=== PATIENT | female | born 1990 | race Caucasian/White ===

== ENCOUNTER 2017-05-10 12:47 | Emergency (ER) | END 2017-05-10 15:28 | disposition home or self-care (01) | DX: O23.41 Unspecified infection of urinary tract in pregnancy, first trimester (principal); O20.0 Threatened abortion; Z3A.01 Less than 8 weeks gestation of pregnancy | CPT/HCPCS: 76801; 76817; 81001; 84702; 85025; 86900; 86901; Z7502 ==

== ENCOUNTER 2017-09-03 13:15 | Emergency (ER) | payer OTHER ==
[~2017-09-03] VITALS: Ht 160 cm; Wt 72.7 kg
[~2017-09-03 13:15] MED LIST: CALC-75 PO; CEPH-443 PO; IRON1TAB75 PO; PREN-39 PO
[2017-09-03 13:16] VITALS: Ht 160 cm; Wt 72.7 kg
[2017-09-03] MEDS ORDERED: METOCLOPRAMIDE 10 MG INJ IV STA (14:03)
[2017-09-03] MEDS ORDERED: SOD CHLORIDE 0.9% 1,000 ML IV STA (14:03)
[2017-09-03 15:22] LABS: BASOPHILS % 0.2 % (0.0-2.0); EOSINOPHILS % 0.2 % (0.0-7.0); HEMATOCRIT 33.4 % (37.0-47.0); HEMOGLOBIN 11.8 g/dl (12.0-16.0); LYMPHOCYTES % 25.2 % (15.0-51.0); MEAN CORPUSCULAR HEMOGLOBIN 28.7 pg (29.0-33.0); MEAN CORPUSCULAR HGB CONC 35.3 g/dl (32.0-37.0); MEAN CORPUSCULAR VOLUME 81.3 fl (82.0-101.0); MEAN PLATELET VOLUME 10.8 fl (7.4-10.4); MONOCYTE # 0.4 10^3/ul (0.3-0.9); MONOCYTES % 10.8 % (0.0-11.0); NEUTROPHIL # 2.6 10^3/ul (1.6-7.5); NEUTROPHILS % 63.4 % (39.0-77.0); PLATELET COUNT 221 10^3/UL (140-415); RED BLOOD COUNT 4.11 10^6/ul (4.20-5.40); RED CELL DISTRIBUTION WIDTH 12.6 % (11.5-14.5); WHITE BLOOD COUNT 4.1 10^3/ul (4.8-10.8)
[2017-09-03] MEDS ORDERED: METO10TA92 PO (15:37)
--- NOTE | 2017-09-03 15:40 | ERD ---
ER Documentation Chief Complaint Chief Complaint vomiting x 4 days, 12 weeks (LEON POWERS MD) HPI 27-year-old female presents with vomiting for last 4 days. She also has chills. She is 12 weeks by dates. She had a ultrasound this week which is showed no abnormalities. She denies any urinary complaints or vaginal bleeding. She denies any abdominal pain except mildly in the upper abdomen on the left. Vomiting is nonbilious and nonbloody. (LEON POWERS MD) ROS All systems reviewed and are negative except as per history of present illness. (LEON POWERS MD) Medications Home Meds Active Scripts Metoclopramide* (Reglan*) 10 Mg Tablet, 10 MG PO Q6 Y for NAUSEA AND/OR VOMITING , #20 TAB Prov:LEON POWERS MD 09/03/17 Cephalexin* (Keflex*) 500 Mg Capsule, 500 MG PO BID for 7 Days, CAP Prov:JENNIFER CHARLES MD 05/10/17 Reported Medications Calcium Carb/Vit D3/Minerals (CALCIUM 600 + D TABLET) 1 Each Tablet, 1 EACH PO DAILY 09/17/13 Iron &Iron Asp Gly/Fa/Mv,Min38 (IRON TABLET) 1 Each Tablet, 1 EACH PO DAILY 09/17/13 Vits W-Ca,Fe,Fa(<1MG) ( Vitamins) 1 Tab Tablet, 1 TAB PO DAILY 09/17/13 Allergies Allergies: Coded Allergies: No Known Drug Allergies (Verified Allergy, 09/17/13) PMhx/Soc Medical and Surgical Hx: pt denies Medical Hx, pt denies Surgical Hx Hx Alcohol Use: No Hx Substance Use: No Hx Tobacco Use: No Smoking Status: Never smoker (LEON POWERS MD) Physical Exam Vitals Vital Signs Date Time Temp Pulse Resp B/P Pulse Ox O2 Delivery O2 Flow Rate FiO2 09/03/17 13:16 97.9 105 18 122/68 98 (NELSON HOLLIDAY PA-C) Physical Exam Const: [ alert, [id number]. Head: Atraumatic Eyes: Normal Conjunctiva ENT: Normal External Ears, Nose and Mouth. Neck: Full range of motion..~ No meningismus. Resp: Clear to auscultation bilaterally Cardio: Regular rate and rhythm, no murmurs Abd: Soft, non tender, non distended. Normal bowel sounds Skin: No petechiae or rashes Back: No midline or flank tenderness Ext: No cyanosis, or edema Neur: Awake and alert Psych: Normal Mood and Affect (LEON POWERS MD) Result Diagram: 09/03/17 1426 09/03/17 1426 Results 24 hrs Laboratory Tests Test 09/03/17 14:26 White Blood Count 4.110^3/ul Red Blood Count 4.1110^6/ul Hemoglobin 11.8g/dl Hematocrit 33.4% Mean Corpuscular Volume 81.3fl Mean Corpuscular Hemoglobin 28.7pg Mean Corpuscular Hemoglobin Concent 35.3g/dl Red Cell Distribution Width 12.6% Platelet Count 22188^3/UL Mean Platelet Volume 10.8fl Neutrophils % 63.4% Lymphocytes % 25.2% Monocytes % 10.8% Eosinophils % 0.2% Basophils % 0.2% Nucleated Red Blood Cells % 0.0/100WBC Neutrophils # 2.610^3/ul Lymphocytes # 1.010^3/ul Monocytes # 0.410^3/ul Eosinophils # 0.010^3/ul Basophils # 0.010^3/ul Nucleated Red Blood Cells # 0.010^3/ul Urine Color JANICE Urine Clarity SLIGHTLY CLOUDY Urine pH 5.0 Urine Specific [place] 1.020 Urine Ketones TRACEmg/dL Urine Nitrite POSITIVEmg/dL Urine Bilirubin NEGATIVEmg/dL Urine Urobilinogen 2+mg/dL Urine Leukocyte Esterase 2+Tariq/ul Urine Microscopic RBC 2/HPF Urine Microscopic WBC 37/HPF Urine Squamous Epithelial Cells FEW/HPF Urine Bacteria MODERATE/HPF Urine Mucus MANY/HPF Urine Hemoglobin 2+mg/dL Urine Glucose NEGATIVEmg/dL Urine Total Protein 1+mg/dl Sodium Level 136mmol/L Potassium Level 4.1mmol/L Chloride Level 97mmol/L Carbon Dioxide Level 28mmol/L Anion Gap 15 Blood Urea Nitrogen 6mg/dl Creatinine 0.54mg/dl Glucose Level 98mg/dl Calcium Level 9.6mg/dl Total Bilirubin 0.2mg/dl Direct Bilirubin 0.00mg/dl Indirect Bilirubin 0.2mg/dl Aspartate Amino Transf (AST/SGOT) 35IU/L Alanine Aminotransferase (ALT/SGPT) 42IU/L Alkaline Phosphatase 95IU/L Total Protein 7.6g/dl Albumin 4.0g/dl Globulin 3.60g/dl Albumin/Globulin Ratio 1.11 Lipase 91U/L Current Medications Medications (Trade) Dose Ordered Sig/Abdoul Route PRN Reason Start Time Stop Time Status Last Admin Dose Admin Sodium Chloride (NS) 1,000 ml @ 1,000 mls/hr Q1H STAT IV 09/03/17 14:03 09/03/17 15:02 DC 09/03/17 14:31 Metoclopramide HCl (Reglan) 10 mg ONCE STAT IV 09/03/17 14:03 09/03/17 14:04 DC 09/03/17 14:31 (NELSON HOLLIDAY PA-C) Procedures/MDM Patient was referred by primary doctor for vomiting of . Patient denies any previous hyperemesis. She also suggests possible gastroenteritis or UTI. IV was obtained the patient was given 1 L normal saline IV, Reglan 10 mg IV. CBC and CMP and urine pending and results signed out to GIANNA Mendoza urine is still ROUSE cystoscopy hyperemesis and supervising ER physician. Patient currently has no signs or symptoms to suggest complications of , appendicitis, obstruction, hepatobiliary disease. (LEON POWERS MD) Patient was signed out to me by Dr. Powers pending results of laboratory workup. Laboratory workup shows no elevated white blood cell count. Her hemoglobin is very mildly decreased. Electrolytes are within normal limits. Glucose is within normal limits. Liver enzymes are within normal limits. Lipase is within normal limits. UA shows positive nitrites and 2+ leukocyte esterase and 37 micro scopic white blood cells. Patient will be given a prescription for Keflex to treat urinary tract infection. She was also given a prescription for Reglan for her nausea and vomiting as prescribed by Dr. Powers. Patient indicated feeling significantly better after IV fluids. At this time the patient is stable for discharge and outpatient management. Patient should follow up with their PCP in the next 1-2 days. They may return to the emergency department sooner for any persistent or worsening of symptoms. Patient understood and agreed with the plan. (NELSON HOLLIDAY PA-C) Departure Diagnosis: Primary Impression: Nausea and vomiting Vomiting type: unspecified Vomiting Intractability: unspecified Qualified Code: R11.2 - Nausea and vomiting, intractability of vomiting not specified, unspecified vomiting type Additional Impression: UTI (urinary tract infection) Urinary tract infection type: site unspecified Hematuria presence: without hematuria Qualified Code: N39.0 - Urinary tract infection without hematuria, site unspecified Condition: Stable Patient Instructions: Hyperemesis Gravidarum Additional Instructions: Recheck for new or worsening symptoms or primary care doctor. LEON POWERS MD Sep 03, 2017 15:40 NELSON HOLLIDAY PA-C Sep 03, 2017 16:10
[2017-09-03 15:41] LABS: ALBUMIN/GLOBULIN RATIO 1.11; BILIRUBIN,INDIRECT 0.2 mg/dl (0-1.1); BILIRUBIN,TOTAL 0.2 mg/dl (0.2-1.3); CALCIUM 9.6 mg/dl (8.4-10.2); CREATININE 0.54 mg/dl (0.44-1.00); POTASSIUM 4.1 mmol/L (3.5-5.1); TOTAL PROTEIN 7.6 g/dl (6.1-8.1)
[2017-09-03 15:49] LABS: ADD UMIC YES; UR ASCORBIC ACID NEGATIVE (NEGATIVE); UR BACTERIA MODERATE /HPF (NONE SEEN); UR BILIRUBIN (Dip) NEGATIVE (NEGATIVE); UR BLOOD (Dip) 2+ mg/dL (NEGATIVE); UR CLARITY SLIGHTLY CLOUDY (CLEAR); UR COLOR AMBER (YELLOW); UR GLUCOSE (Dip) NEGATIVE (NEGATIVE); UR KETONES (Dip) TRACE mg/dL (NEGATIVE); UR LEUKOCYTE ESTERASE (Dip) 2+ Leu/ul (NEGATIVE); UR MUCUS MANY /HPF (NONE SEEN); UR NITRITE (Dip) POSITIVE (NEGATIVE); UR RBC 2 /HPF (0-5); UR SQUAMOUS EPITHELIAL CELL FEW /HPF (FEW); UR TOTAL PROTEIN (Dip) 1+ mg/dl (NEGATIVE); UR UROBILINOGEN (Dip) 2+ mg/dL (NEGATIVE)
[2017-09-03] MEDS ORDERED: CEPH-443 PO (16:10)
[2017-09-03 16:17] VITALS: BP 116/59; PULSE 89; RESP 16
== END 2017-09-03 16:18 | disposition home or self-care (01) ==
LOC: FTE 13:15
DX: O21.9 Vomiting of pregnancy, unspecified (principal); O23.41 Unspecified infection of urinary tract in pregnancy, first trimester; Z3A.12 12 weeks gestation of pregnancy
CPT/HCPCS: 36415; 80053; 81001; 83690; 85025; 96374; J2765; J7030; Z7502